=== PATIENT | female | born 1945 | race African-American/Black ===

== ENCOUNTER 2017-11-19 08:17 | Inpatient (IN) | payer MEDICARE, OTHER ==
[2017-11-19] VITALS (44 sets, daily range): BP systolic 93–176; BP diastolic 59–117
[~2017-11-19] VITALS: Ht 172.7 cm; Wt 66.3 kg
[~2017-11-19 08:17] MED LIST: LOSA50TA20 PO
[2017-11-19] MEDS ORDERED: SODIUM CHLORIDE 0.9% 1,000 ML IV ONE (08:55)
[2017-11-19 09:37] LABS: HEMATOCRIT. 41.1 % (36.0-48.0); HEMOGLOBIN. 13.8 g/dL (12.0-16.0); MEAN CORPUSCULAR HEMOGLOBIN 30.1 pg (28.0-32.0); MEAN CORPUSCULAR VOLUME 89.4 fL (81.0-99.0); MEAN PLATELET VOLUME 7.8 fl (7.4-10.4); PLATELET 192 x1000/uL (130-400); RED BLOOD CELL COUNT 4.59 mill/uL (4.2-5.4); RED CELL DISTRIBUTION WIDTH 13.9 % (11.6-14.6)
[2017-11-19 09:44] LABS: CHLORIDE 101 mEq/L (98-107); PARTIAL THROMBOPLASTIN TIME 24.4 sec (23.4-31.0); PROTHROMBIN TIME 10.5 sec (9.4-11.6)
[2017-11-19 09:52] LABS: CREATINE KINASE MB FRACTION 13.4 ng/mL (0.5-3.6)
[2017-11-19 10:12] LABS: PLATELET ESTIMATE NORMAL
[2017-11-19] MEDS ORDERED: LEVETIRACETAM 500MG PREMIX 100 ML IV ONE (10:30)
[2017-11-19] MEDS ORDERED: MANNITOL 12.5G (25%) VIAL 50ML IV ONE (10:45)
[2017-11-19] MEDS ORDERED: LIDOCAINE HCL/EPINEPHRINE 1%-EPI 1:100,000 30 ML VIAL INFIL ONE (10:56)
[2017-11-19] MEDS ORDERED: GELATIN SPONGE,ABSORBABLE SZ 100 ONE (10:56)
[2017-11-19] MEDS ORDERED: THROMBIN (BOVINE) 5000 UNITS/VIAL TOP ONE (10:56)
[2017-11-19] MEDS ORDERED: NORMAL SALINE 0.9% 10 ML SYR ONE (10:57)
[2017-11-19] MEDS ORDERED: BACITRACIN 50,000 UNITS/VIAL ONE (10:57)
[2017-11-19] MEDS ORDERED: ROCURONIUM BROMIDE 10MG/ML VIAL 5ML IV ONE (11:03)
[2017-11-19] MEDS ORDERED: PROPOFOL 200MG/20ML VIAL IV ONE ×2 (11:04→11:47)
[2017-11-19] MEDS ORDERED: LIDOCAINE HCL/PF 1% 10 MG/ML 5ML VIAL ONE ×2 (11:05→11:47)
[2017-11-19] MEDS ORDERED: SUCCINYLCHOLINE CHLORIDE 200MG/10ML VIAL IV ONE (11:05)
[2017-11-19] MEDS ORDERED: ETOMIDATE 2MG/ML 10ML VIAL IV ONE (11:06)
[2017-11-19] MEDS ORDERED: POVIDONE-IODINE OINT 28.4GM TOP ONE (11:06)
[2017-11-19] MEDS ORDERED: BACITRACIN ZINC 15GM TUBE TOP ONE (11:06)
[2017-11-19] MEDS ORDERED: FENTANYL CITRATE/PF 50MCG/ML 5ML VIAL ONE (11:47)
[2017-11-19] MEDS ORDERED: MIDAZOLAM HCL 2 MG/2 ML VIAL ONE (11:47)
[2017-11-19] MEDS ORDERED: LEVETIRACETAM 500 MG in SODIUM CHLORIDE 0.9% 100 ML IV SCH ×2 (12:30→15:30)
[2017-11-19] MEDS: NICARDIPINE 100 MG in SODIUM CHLORIDE 0.9% 60 ML IV PRN ×2 (13:12→20:21)
[2017-11-19] MEDS: DEXT 5%/LACTATED RINGERS 1,000 ML IV SCH (13:12)
[2017-11-19] MEDS ORDERED: IPRATROPIUM/ALBUTEROL 0.5-3(2.5)MG/3ML NEB INH PRN (13:15)
[2017-11-19] MEDS ORDERED: ONDANSETRON HCL 4MG/2ML VIAL IV PRN (13:15)
[2017-11-19] MEDS ORDERED: ACETAMINOPHEN 650MG SUPP PR PRN (13:15)
[2017-11-19] MEDS ORDERED: IPRATROPIUM/ALBUTEROL 0.5-3(2.5)MG/3ML NEB HHN PRN (13:15)
[2017-11-19] MEDS ORDERED: GUAIFENESIN 200MG/10ML SUGAR FREE UDC PO PRN (13:15)
[2017-11-19] MEDS ORDERED: CLONIDINE 0.1MG TABLET PO PRN (13:15)
[2017-11-19] MEDS ORDERED: MAGNESIUM/ALUMINUM HYDROXIDE/SIMETHICONE 30ML UDC PO PRN (13:15)
[2017-11-19] MEDS ORDERED: ACETAMINOPHEN 325MG TABLET PO PRN (13:15)
[2017-11-19 13:37] LABS: BG BASE EXCESS -1.2 mmol/L (-2.0-2.0); BG CARBOXYHEMOGLOBIN 0.6 % (0.5-1.5); BG DEOXYHEMOGLOBIN 0.1 % (0.0-5.0); BG FRACTION INSPIRED OXYGEN 100; BG HCO3 ACT 22.9 mmol/L (22.0-26.0); BG METHEMOGLOBIN 0.4 % (0.0-1.5); BG OXYGEN SATURATION 99.9 % (92.0-98.5); BG OXYHEMOGLOBIN 98.9 % (94.0-97.0); BG PCO2 36.5 mmHg (35.0-45.0); BG PH 7.415 (7.350-7.450); BG SAMPLE SITE RIGHT BRACHIAL; BG TIDAL VOLUME(mL) 500 mL; BG TOTAL HEMOGLOBIN 14.5 g/dL (12.0-18.0); BG VENT MODE VENT - A/C; BG VENT RATE 16 set
[2017-11-19] MEDS: SODIUM CHLORIDE 0.9% INJ 3ML FLUSH IVF SCH ×2 (14:00→22:00)
[2017-11-19] MEDS ORDERED: CEFAZOLIN SODIUM 1000MG/VIAL IV SCH (14:00)
[2017-11-19] MEDS ORDERED: ATOR40TA70 PO (14:11)
[2017-11-19] MEDS ORDERED: ASPI-1159 PO (14:11)
[2017-11-19] MEDS ORDERED: LISI-186 PO (14:11)
[2017-11-19] MEDS: PROPOFOL 10MG/ML 100ML 100 ML IV PRN ×2 (14:14→23:10)
[2017-11-19] MEDS: PANTOPRAZOLE SODIUM 40 MG/VIAL IV SCH (15:17)
[2017-11-19] MEDS: IPRATROPIUM/ALBUTEROL 0.5-3(2.5)MG/3ML NEB HHN SCH ×3 (16:25→23:40)
[2017-11-19 17:37] LABS: CLARITY URINE CLOUDY (CLEAR); COLOR URINE YELLOW (YELLOW); KETONES URINE TRACE (NEGATIVE); LEUKOCYTE ESTERASE URINE NEGATIVE (NEGATIVE); NITRITE URINE NEGATIVE (NEGATIVE); OCCULT BLOOD URINE 2+ (NEGATIVE); PROTEIN URINE 1+ (NEGATIVE); SPECIFIC GRAVITY URINE 1.022 (1.005-1.030); UROBILINOGEN URINE 0.2 E.U./dL (0.2-1.0)
[2017-11-19 17:50] LABS: *AMPHETAMINES SCREEN URINE NEGATIVE (NEGATIVE); *BARBITURATES SCREEN URINE NEGATIVE (NEGATIVE); *BENZODIAZEPINES SCREEN URINE PRESUMTIVE POSITIVE (NEGATIVE); *COCAINE SCREEN URINE NEGATIVE (NEGATIVE); CANNABINOID URINE SCREEN NEGATIVE (NEGATIVE); METHADONE URINE SCREEN NEGATIVE (NEGATIVE); OPIATES URINE SCREEN NEGATIVE (NEGATIVE); PHENCYCLIDINE URINE SCREEN NEGATIVE (NEGATIVE)
[2017-11-19] MEDS ORDERED: POTASSIUM CHLORIDE 20MEQ TABLET SR PO SCH (18:45)
[2017-11-19] MEDS: CEFAZOLIN 1000MG PREMIX 50 ML IV SCH ×2 (20:11→22:32)
[2017-11-19] MEDS ORDERED: POTASSIUM CHLORIDE INJ 40 MEQ in DEXT 5% WATER 250 ML IV NR (20:30)
[2017-11-19] MEDS: LEVETIRACETAM 500MG PREMIX 100 ML IV SCH (21:09)
[2017-11-20] VITALS (78 sets, daily range): BP systolic 91–171; BP diastolic 49–106
[2017-11-20] MEDS: IPRATROPIUM/ALBUTEROL 0.5-3(2.5)MG/3ML NEB HHN SCH ×5 (03:57→20:14)
[2017-11-20] MEDS: CEFAZOLIN 1000MG PREMIX 50 ML IV SCH ×3 (05:07→21:46)
[2017-11-20] MEDS: DEXT 5%/LACTATED RINGERS 1,000 ML IV SCH ×2 (05:12→22:30)
[2017-11-20 05:52] LABS: HEMATOCRIT. 35.5 % (36.0-48.0); HEMOGLOBIN. 12.8 g/dL (12.0-16.0); LYMPHOCYTES % 8.6 % (20.0-50.0); MEAN CORPUSCULAR HEMOGLOBIN 31.3 pg (28.0-32.0); MEAN CORPUSCULAR VOLUME 86.9 fL (81.0-99.0); MEAN PLATELET VOLUME 8.2 fl (7.4-10.4); MONOCYTES % 10.4 % (2.0-8.0); PLATELET 193 x1000/uL (130-400); RED BLOOD CELL COUNT 4.08 mill/uL (4.2-5.4); RED CELL DISTRIBUTION WIDTH 14.4 % (11.6-14.6)
[2017-11-20] MEDS: SODIUM CHLORIDE 0.9% INJ 3ML FLUSH IVF SCH ×3 (06:00→21:46)
[2017-11-20 06:17] LABS: CHLORIDE 105 mEq/L (98-107)
[2017-11-20 06:36] LABS: HDL CHOLESTEROL 91 mg/dL (40-59); LDL CHOLESTEROL 43 mg/dL (5-100); PHOSPHORUS 2.5 mg/dL (2.5-4.9)
[2017-11-20] MEDS: PANTOPRAZOLE SODIUM 40 MG/VIAL IV SCH (09:08)
[2017-11-20] MEDS: PROPOFOL 10MG/ML 100ML 100 ML IV PRN ×2 (09:09→18:55)
[2017-11-20] MEDS: LEVETIRACETAM 500MG PREMIX 100 ML IV SCH ×2 (09:09→20:46)
[2017-11-21] VITALS (106 sets, daily range): BP systolic 87–172; BP diastolic 56–124
[2017-11-21] MEDS: IPRATROPIUM/ALBUTEROL 0.5-3(2.5)MG/3ML NEB HHN SCH ×6 (00:18→20:24)
[2017-11-21] MEDS: PROPOFOL 10MG/ML 100ML 100 ML IV PRN ×4 (00:58→21:44)
[2017-11-21] MEDS: CEFAZOLIN 1000MG PREMIX 50 ML IV SCH (05:44)
[2017-11-21] MEDS: SODIUM CHLORIDE 0.9% INJ 3ML FLUSH IVF SCH ×3 (05:44→20:12)
[2017-11-21 08:14] LABS: BG BASE EXCESS 0.4 mmol/L (-2.0-2.0); BG CARBOXYHEMOGLOBIN 0.3 % (0.5-1.5); BG FRACTION INSPIRED OXYGEN 40; BG HCO3 ACT 23.1 mmol/L (22.0-26.0); BG METHEMOGLOBIN 0.3 % (0.0-1.5); BG OXYHEMOGLOBIN 98.4 % (94.0-97.0); BG PCO2 31.4 mmHg (35.0-45.0); BG PH 7.484 (7.350-7.450); BG PO2 180.8 mmHg (75.0-100.0); BG SAMPLE SITE RIGHT RADIAL; BG TIDAL VOLUME(mL) 500 mL; BG TOTAL HEMOGLOBIN 13.5 g/dL (12.0-18.0); BG VENT MODE VENT - A/C; BG VENT RATE 16 set
[2017-11-21] MEDS: PANTOPRAZOLE SODIUM 40 MG/VIAL IV SCH (10:12)
[2017-11-21] MEDS: LEVETIRACETAM 500MG PREMIX 100 ML IV SCH ×2 (10:18→20:11)
[2017-11-21 14:41] LABS: BASOPHILS % 0.2 % (0.0-2.0); HEMATOCRIT. 39.5 % (36.0-48.0); HEMOGLOBIN. 13.7 g/dL (12.0-16.0); MEAN CORPUSCULAR HEMOGLOBIN 31.2 pg (28.0-32.0); MEAN CORPUSCULAR VOLUME 89.9 fL (81.0-99.0); MEAN PLATELET VOLUME 7.8 fl (7.4-10.4); MONOCYTES % 9.9 % (2.0-8.0); NEUTROPHILS % 72.9 % (40.0-76.0); PLATELET 166 x1000/uL (130-400); RED BLOOD CELL COUNT 4.39 mill/uL (4.2-5.4); RED CELL DISTRIBUTION WIDTH 14.2 % (11.6-14.6)
[2017-11-21] MEDS: DEXT 5%/LACTATED RINGERS 1,000 ML IV SCH (14:41)
[2017-11-21 14:53] LABS: CHLORIDE 111 mEq/L (98-107)
[2017-11-22] VITALS (94 sets, daily range): BP systolic 86–159; BP diastolic 50–106
[2017-11-22] MEDS: IPRATROPIUM/ALBUTEROL 0.5-3(2.5)MG/3ML NEB HHN SCH ×6 (00:10→20:14)
[2017-11-22] MEDS: PROPOFOL 10MG/ML 100ML 100 ML IV PRN ×3 (04:31→20:31)
[2017-11-22 05:58] LABS: BASOPHILS % 0.4 % (0.0-2.0); EOSINOPHILS % 0.1 % (0.0-5.0); HEMATOCRIT. 37.9 % (36.0-48.0); HEMOGLOBIN. 13.1 g/dL (12.0-16.0); LYMPHOCYTES % 12.3 % (20.0-50.0); MEAN CORPUSCULAR HEMOGLOBIN 30.8 pg (28.0-32.0); MEAN CORPUSCULAR VOLUME 88.8 fL (81.0-99.0); MEAN PLATELET VOLUME 8.2 fl (7.4-10.4); MONOCYTES % 8.9 % (2.0-8.0); NEUTROPHILS % 78.3 % (40.0-76.0); PLATELET 195 x1000/uL (130-400); RED BLOOD CELL COUNT 4.27 mill/uL (4.2-5.4); RED CELL DISTRIBUTION WIDTH 14.5 % (11.6-14.6)
[2017-11-22] MEDS: SODIUM CHLORIDE 0.9% INJ 3ML FLUSH IVF SCH ×3 (06:00→22:00)
[2017-11-22] MEDS: NICARDIPINE 100 MG in SODIUM CHLORIDE 0.9% 60 ML IV PRN ×2 (06:28→20:48)
[2017-11-22 06:30] LABS: CHLORIDE 107 mEq/L (98-107)
[2017-11-22] MEDS: DEXT 5%/LACTATED RINGERS 1,000 ML IV SCH (07:58)
[2017-11-22 08:00] LABS: BG BASE EXCESS 5.2 mmol/L (-2.0-2.0); BG CARBOXYHEMOGLOBIN 0.5 % (0.5-1.5); BG DEOXYHEMOGLOBIN 0.9 % (0.0-5.0); BG FRACTION INSPIRED OXYGEN 35; BG HCO3 ACT 27.9 mmol/L (22.0-26.0); BG METHEMOGLOBIN 0.1 % (0.0-1.5); BG OXYGEN SATURATION 99.1 % (92.0-98.5); BG OXYHEMOGLOBIN 98.5 % (94.0-97.0); BG PCO2 34.9 mmHg (35.0-45.0); BG PH 7.521 (7.350-7.450); BG PO2 164.2 mmHg (75.0-100.0); BG SAMPLE SITE RIGHT RADIAL; BG TIDAL VOLUME(mL) 500 mL; BG VENT MODE VENT - A/C; BG VENT RATE 12 set
[2017-11-22] MEDS ORDERED: POTASSIUM CHLORIDE INJ 40 MEQ in DEXT 5% WATER 500 ML IV SCH (08:00)
[2017-11-22] MEDS: PANTOPRAZOLE SODIUM 40 MG/VIAL IV SCH (09:03)
[2017-11-22] MEDS: POTASSIUM CHLORIDE INJ 40 MEQ in SODIUM CHLORIDE 0.9% 500 ML IV SCH (09:03)
[2017-11-22] MEDS: LEVETIRACETAM 500MG PREMIX 100 ML IV SCH ×2 (09:03→20:06)
[2017-11-22] MEDS: MORPHINE SULFATE 4 MG/ML CPJ (NOT FOR IM USE) IV PRN (13:21)
[2017-11-23] VITALS (98 sets, daily range): BP systolic 88–176; BP diastolic 58–113
[2017-11-23] MEDS: IPRATROPIUM/ALBUTEROL 0.5-3(2.5)MG/3ML NEB HHN SCH ×6 (00:14→20:14)
[2017-11-23] MEDS: DEXT 5%/LACTATED RINGERS 1,000 ML IV SCH ×2 (01:15→23:05)
[2017-11-23] MEDS: PROPOFOL 10MG/ML 100ML 100 ML IV PRN ×3 (03:53→18:11)
[2017-11-23] MEDS: SODIUM CHLORIDE 0.9% INJ 3ML FLUSH IVF SCH ×3 (05:31→22:00)
[2017-11-23 07:38] LABS: BG CARBOXYHEMOGLOBIN 0.2 % (0.5-1.5); BG DEOXYHEMOGLOBIN 1.9 % (0.0-5.0); BG FRACTION INSPIRED OXYGEN 30; BG HCO3 ACT 25.4 mmol/L (22.0-26.0); BG METHEMOGLOBIN 0.1 % (0.0-1.5); BG OXYGEN SATURATION 98.1 % (92.0-98.5); BG OXYHEMOGLOBIN 97.8 % (94.0-97.0); BG PCO2 35.3 mmHg (35.0-45.0); BG PH 7.475 (7.350-7.450); BG PO2 129.3 mmHg (75.0-100.0); BG SAMPLE SITE RIGHT RADIAL; BG TIDAL VOLUME(mL) 500 mL; BG TOTAL HEMOGLOBIN 10.7 g/dL (12.0-18.0); BG VENT MODE VENT - A/C; BG VENT RATE 10 set
[2017-11-23 08:16] LABS: CHLORIDE 109 mEq/L (98-107)
[2017-11-23] MEDS: POTASSIUM CHLORIDE INJ 40 MEQ in SODIUM CHLORIDE 0.9% 500 ML IV SCH (08:39)
[2017-11-23] MEDS: PANTOPRAZOLE SODIUM 40 MG/VIAL IV SCH (08:39)
[2017-11-23] MEDS: LEVETIRACETAM 500MG PREMIX 100 ML IV SCH ×2 (10:49→21:55)
[2017-11-23 12:57] LABS: BASOPHILS % 1.2 % (0.0-2.0); EOSINOPHILS % 1.2 % (0.0-5.0); HEMATOCRIT. 34.1 % (36.0-48.0); HEMOGLOBIN. 11.4 g/dL (12.0-16.0); LYMPHOCYTES % 27.4 % (20.0-50.0); MEAN CORPUSCULAR HEMOGLOBIN 30.1 pg (28.0-32.0); MEAN PLATELET VOLUME 8.2 fl (7.4-10.4); MONOCYTES % 10.7 % (2.0-8.0); NEUTROPHILS % 59.5 % (40.0-76.0); PLATELET 194 x1000/uL (130-400); RED BLOOD CELL COUNT 3.79 mill/uL (4.2-5.4); RED CELL DISTRIBUTION WIDTH 14.4 % (11.6-14.6)
[2017-11-23] MEDS: AMLODIPINE 10MG TABLET PO SCH (15:16)
[2017-11-23] MEDS: BENAZEPRIL 5MG TABLET PO SCH (22:46)
[2017-11-24] VITALS (79 sets, daily range): BP systolic 53–181; BP diastolic 29–143
[2017-11-24] MEDS: IPRATROPIUM/ALBUTEROL 0.5-3(2.5)MG/3ML NEB HHN SCH ×6 (00:16→20:45)
[2017-11-24] MEDS: PROPOFOL 10MG/ML 100ML 100 ML IV PRN ×2 (03:13→19:19)
[2017-11-24 05:40] LABS: PROTHROMBIN TIME 10.1 sec (9.4-11.6)
[2017-11-24 05:48] LABS: CHLORIDE 108 mEq/L (98-107); PHOSPHORUS 3.1 mg/dL (2.5-4.9)
[2017-11-24] MEDS: SODIUM CHLORIDE 0.9% INJ 3ML FLUSH IVF SCH ×3 (06:00→21:00)
[2017-11-24 06:01] LABS: BASOPHILS % 0.5 % (0.0-2.0); HDL CHOLESTEROL 59 mg/dL (40-59); HEMATOCRIT. 33.7 % (36.0-48.0); HEMOGLOBIN. 11.7 g/dL (12.0-16.0); LDL CHOLESTEROL 57 mg/dL (5-100); LYMPHOCYTES % 17.9 % (20.0-50.0); MEAN CORPUSCULAR HEMOGLOBIN 30.9 pg (28.0-32.0); MEAN CORPUSCULAR VOLUME 89.3 fL (81.0-99.0); MEAN PLATELET VOLUME 7.8 fl (7.4-10.4); NEUTROPHILS % 69.6 % (40.0-76.0); PLATELET 193 x1000/uL (130-400); RED BLOOD CELL COUNT 3.77 mill/uL (4.2-5.4); RED CELL DISTRIBUTION WIDTH 13.8 % (11.6-14.6); TOTAL IRON BINDING CAPACITY 198 ug/dL (250-450)
[2017-11-24 08:12] LABS: BG BASE EXCESS -0.9 mmol/L (-2.0-2.0); BG CARBOXYHEMOGLOBIN 0.1 % (0.5-1.5); BG DEOXYHEMOGLOBIN 2.7 % (0.0-5.0); BG FRACTION INSPIRED OXYGEN 30; BG HCO3 ACT 22.3 mmol/L (22.0-26.0); BG METHEMOGLOBIN 0.3 % (0.0-1.5); BG OXYGEN SATURATION 97.3 % (92.0-98.5); BG OXYHEMOGLOBIN 96.9 % (94.0-97.0); BG PCO2 32.8 mmHg (35.0-45.0); BG PH 7.451 (7.350-7.450); BG PO2 103.8 mmHg (75.0-100.0); BG SAMPLE SITE RIGHT RADIAL; BG TIDAL VOLUME(mL) 500 mL; BG TOTAL HEMOGLOBIN 12.9 g/dL (12.0-18.0); BG VENT MODE VENT - A/C; BG VENT RATE 10 set
[2017-11-24] MEDS: AMLODIPINE 10MG TABLET PO SCH (08:56)
[2017-11-24] MEDS: POTASSIUM CHLORIDE INJ 40 MEQ in SODIUM CHLORIDE 0.9% 500 ML IV SCH (08:56)
[2017-11-24] MEDS: LEVETIRACETAM 500MG PREMIX 100 ML IV SCH ×2 (08:56→20:58)
[2017-11-24] MEDS: BENAZEPRIL 5MG TABLET PO SCH ×2 (08:56→20:59)
[2017-11-24] MEDS: PANTOPRAZOLE SODIUM 40 MG/VIAL IV SCH (08:57)
[2017-11-24] MEDS ORDERED: BENA5TAB3 PO (10:45)
[2017-11-24] MEDS ORDERED: KEPP500 PO (10:45)
[2017-11-24] MEDS ORDERED: AMLO10TA80 PO (10:45)
[2017-11-24] MEDS ORDERED: HYDRALAZINE 20MG/ML VIAL IV SCH (10:50)
[2017-11-24] MEDS ORDERED: BENAZEPRIL 5MG TABLET PO SCH ×2 (10:50→11:00)
[2017-11-24] MEDS: CLONIDINE 0.1MG TABLET PO PRN ×2 (10:51→22:12)
[2017-11-24] MEDS ORDERED: ACETAMINOPHEN 650MG/20.3ML UDC PO PRN (11:45)
[2017-11-24 12:50] LABS: FOLIC ACID (FOLATE) SERUM 12.8 ng/mL (>5.38)
[2017-11-24] MEDS: ACETAMINOPHEN 650MG/20.3ML UDC GT PRN (14:54)
[2017-11-24] MEDS: METOPROLOL TARTRATE 25MG TABLET PO SCH ×2 (17:20→20:58)
[2017-11-24] MEDS: MORPHINE SULFATE 4 MG/ML CPJ (NOT FOR IM USE) IV PRN (17:45)
[2017-11-24] MEDS ORDERED: PROPOFOL 10MG/ML 100ML 100 ML IV PRN (23:15)
[2017-11-25] VITALS (98 sets, daily range): BP systolic 93–180; BP diastolic 59–116
[2017-11-25] MEDS: IPRATROPIUM/ALBUTEROL 0.5-3(2.5)MG/3ML NEB HHN SCH ×6 (00:07→20:42)
[2017-11-25] MEDS: SODIUM CHLORIDE 0.9% INJ 3ML FLUSH IVF SCH ×3 (05:52→22:25)
[2017-11-25] MEDS: CLONIDINE 0.1MG TABLET PO PRN ×2 (06:37→15:06)
[2017-11-25] MEDS: MORPHINE SULFATE 4 MG/ML CPJ (NOT FOR IM USE) IV PRN ×3 (06:37→22:00)
[2017-11-25] MEDS: PANTOPRAZOLE SODIUM 40 MG/VIAL IV SCH (08:28)
[2017-11-25] MEDS: POTASSIUM CHLORIDE INJ 40 MEQ in SODIUM CHLORIDE 0.9% 500 ML IV SCH (08:28)
[2017-11-25] MEDS: LEVETIRACETAM 500MG PREMIX 100 ML IV SCH ×2 (08:28→20:08)
[2017-11-25] MEDS: METOPROLOL TARTRATE 25MG TABLET PO SCH ×2 (08:46→20:07)
[2017-11-25] MEDS: DOCUSATE SODIUM 100MG CAPSULE PO PRN ×2 (09:07→23:37)
[2017-11-25] MEDS: BENAZEPRIL 5MG TABLET PO SCH ×2 (09:08→20:07)
[2017-11-25 09:29] LABS: CHLORIDE 108 mEq/L (98-107)
[2017-11-25 09:37] LABS: HEMATOCRIT. 34.5 % (36.0-48.0); HEMOGLOBIN. 11.6 g/dL (12.0-16.0); MEAN CORPUSCULAR HEMOGLOBIN 30.2 pg (28.0-32.0); MEAN CORPUSCULAR VOLUME 89.6 fL (81.0-99.0); PLATELET 196 x1000/uL (130-400); RED BLOOD CELL COUNT 3.85 mill/uL (4.2-5.4); RED CELL DISTRIBUTION WIDTH 14.2 % (11.6-14.6)
[2017-11-25] MEDS: AMLODIPINE 10MG TABLET PO SCH (10:46)
[2017-11-25 11:06] LABS: PLATELET ESTIMATE NORMAL
[2017-11-25] MEDS: ACETAMINOPHEN 650MG/20.3ML UDC GT PRN ×2 (15:05→20:07)
[2017-11-25 16:21] LABS: BG BASE EXCESS 3.6 mmol/L (-2.0-2.0); BG CARBOXYHEMOGLOBIN 0.9 % (0.5-1.5); BG DEOXYHEMOGLOBIN 6.3 % (0.0-5.0); BG FRACTION INSPIRED OXYGEN 30; BG HCO3 ACT 26.7 mmol/L (22.0-26.0); BG METHEMOGLOBIN 0.4 % (0.0-1.5); BG OXYGEN SATURATION 93.6 % (92.0-98.5); BG OXYHEMOGLOBIN 92.4 % (94.0-97.0); BG PCO2 35.5 mmHg (35.0-45.0); BG PH 7.494 (7.350-7.450); BG PO2 63.7 mmHg (75.0-100.0); BG PRESSURE SUPPORT 8; BG SAMPLE SITE RIGHT RADIAL; BG TOTAL HEMOGLOBIN 13.6 g/dL (12.0-18.0); BG VENT MODE VENT - CPAP
[2017-11-25] MEDS ORDERED: BISACODYL 5MG TABLET PO PRN (23:15)
[2017-11-25] MEDS ORDERED: BISACODYL 10MG SUPP PR PRN (23:15)
[2017-11-25] MEDS ORDERED: MAGNESIUM CITRATE 300ML SOLUTION PO NR (23:59)
[2017-11-26] VITALS (70 sets, daily range): BP systolic 109–169; BP diastolic 67–110
[2017-11-26 00:14] LABS: CLARITY URINE CLEAR (CLEAR); COLOR URINE YELLOW (YELLOW); KETONES URINE NEGATIVE (NEGATIVE); LEUKOCYTE ESTERASE URINE NEGATIVE (NEGATIVE); NITRITE URINE NEGATIVE (NEGATIVE); OCCULT BLOOD URINE 2+ (NEGATIVE); PROTEIN URINE TRACE (NEGATIVE); SPECIFIC GRAVITY URINE 1.022 (1.005-1.030)
[2017-11-26] MEDS: IPRATROPIUM/ALBUTEROL 0.5-3(2.5)MG/3ML NEB HHN SCH ×6 (00:21→20:20)
[2017-11-26] MEDS: MORPHINE SULFATE 4 MG/ML CPJ (NOT FOR IM USE) IV PRN ×2 (04:01→20:24)
[2017-11-26 05:17] LABS: BASOPHILS % 0.5 % (0.0-2.0); EOSINOPHILS % 0.5 % (0.0-5.0); HEMOGLOBIN. 12.4 g/dL (12.0-16.0); MEAN CORPUSCULAR HEMOGLOBIN 30.7 pg (28.0-32.0); MONOCYTES % 8.3 % (2.0-8.0); NEUTROPHILS % 78.7 % (40.0-76.0); RED BLOOD CELL COUNT 4.04 mill/uL (4.2-5.4)
[2017-11-26 05:28] LABS: CHLORIDE 109 mEq/L (98-107)
[2017-11-26] MEDS: SODIUM CHLORIDE 0.9% INJ 3ML FLUSH IVF SCH ×2 (05:50→14:00)
[2017-11-26] MEDS: PANTOPRAZOLE SODIUM 40 MG/VIAL IV SCH (08:24)
[2017-11-26] MEDS: LEVETIRACETAM 500MG PREMIX 100 ML IV SCH (08:24)
[2017-11-26] MEDS: METOPROLOL TARTRATE 25MG TABLET PO SCH ×2 (08:25→20:15)
[2017-11-26] MEDS: BENAZEPRIL 5MG TABLET PO SCH ×2 (08:25→20:15)
[2017-11-26] MEDS: AMLODIPINE 10MG TABLET PO SCH (08:25)
[2017-11-26] MEDS: POTASSIUM CHLORIDE INJ 40 MEQ in SODIUM CHLORIDE 0.9% 500 ML IV SCH (09:55)
[2017-11-26] MEDS: CLONIDINE 0.1MG TABLET PO PRN (12:19)
[2017-11-26 13:26] LABS: PLATELET 190 x1000/uL (130-400)
== END 2017-11-26 20:50 | disposition short-term general hospital (02) | DRG 23 ==
LOC: ER 08:29 → EDBEDREQ 08:58 → CANRESERV 10:17 → ENRESERV 10:17 → EDBEDREQSVC 10:24 → ENRESERV 10:26 → MICUSO 11:28
PROVIDERS: ADMIT Family Medicine; ATTEND Family Medicine
PROC: 00C40ZZ Extirpation of Matter from Intracranial Subdural Space, Open Approach (ICD-10-PCS; 2017-11-19)
PROC: 00U207Z Supplement Dura Mater with Autologous Tissue Substitute, Open Approach (ICD-10-PCS; 2017-11-19)
PROC: 4A107BD Monitoring of Intracranial Pressure, Via Natural or Artificial Opening (ICD-10-PCS; 2017-11-19)
PROC: 02HV33Z Insertion of Infusion Device into Superior Vena Cava, Percutaneous Approach (ICD-10-PCS; 2017-11-19)
PROC: B548ZZA Ultrasonography of Superior Vena Cava, Guidance (ICD-10-PCS; 2017-11-19)
PROC: 5A1955Z Respiratory Ventilation, Greater than 96 Consecutive Hours (ICD-10-PCS; 2017-11-19)
PROC: 0BH17EZ Insertion of Endotracheal Airway into Trachea, Via Natural or Artificial Opening (ICD-10-PCS; 2017-11-19)
PROC: 00H002Z Insertion of Monitoring Device into Brain, Open Approach (ICD-10-PCS; principal; 2017-11-19 11:00)
DX: I61.0 Nontraumatic intracerebral hemorrhage in hemisphere, subcortical (principal); S06.5X9A Traumatic subdural hemorrhage with loss of consciousness of unspecified duration, initial encounter; J96.00 Acute respiratory failure, unspecified whether with hypoxia or hypercapnia; R40.20 Unspecified coma; E44.0 Moderate protein-calorie malnutrition; G93.41 Metabolic encephalopathy; G81.91 Hemiplegia, unspecified affecting right dominant side; W18.39XA Other fall on same level, initial encounter; I61.8 Other nontraumatic intracerebral hemorrhage; Z68.22 Body mass index [BMI] 22.0-22.9, adult; E78.5 Hyperlipidemia, unspecified; E87.6 Hypokalemia; G93.89 Other specified disorders of brain; I10 Essential (primary) hypertension; I25.10 Atherosclerotic heart disease of native coronary artery without angina pectoris; R40.2420 Glasgow coma scale score 9-12, unspecified time; R73.9 Hyperglycemia, unspecified; Z86.73 Personal history of transient ischemic attack (TIA), and cerebral infarction without residual deficits; Y93.89 Activity, other specified; Y92.89 Other specified places as the place of occurrence of the external cause; Y99.8 Other external cause status
CPT/HCPCS: 36415; 36569; 36600; 70450; 71045; 72170; 76937; 80048; 80053; 80061; 80076; 80305; 81003; 82248; 82375; 82553; 82607; 82746; 82805; 82962; 83036; 83540; 83550; 83721; 83735; 84100; 84443; 84478; 84484; 85007; 85025; 85027; 85610; 85730; 87040; 87086; 92610; 93005; 93306; 93970; 94002; 94003; 94640; 94644; 96361; 96374; 97162; 97166; 99291; A4216; C1725; C1758; C9113; J0330; J0360; J0690; J1953; J2150; J2250; J2270; J2704; J3010; J3480; J3490; J7030; J7040; J7050; J7060; J7120; J7121; J7620